=== PATIENT | male | born 1980 | race Caucasian/White ===

== ENCOUNTER 2019-12-13 18:25 | Emergency (ER) | payer OTHER ==
[~2019-12-13] VITALS: Ht 175.3 cm; Wt 81.7 kg
[2019-12-13] MEDS ORDERED: BRIVIACT100 MG PO (18:34)
[2019-12-13] MEDS ORDERED: DIAZEPAM 10 MG10 M1 PO (18:34)
[2019-12-13] MEDS ORDERED: SERTRALINE HCL100 MG PO (18:34)
[2019-12-13] MEDS ORDERED: RISPERDAL0.5 MG PO (18:35)
[2019-12-13] MEDS ORDERED: DILANTIN100 MG PO (18:36)
[2019-12-13 18:49] LABS: ABSOLUTE BASOPHILS 0.1 thou/uL (0.0-0.2); ABSOLUTE EOSINOPHILS 0.1 thou/uL (0.0-0.7); ABSOLUTE LYMPHOCYTES 3.8 thou/uL (0.8-5.3); ABSOLUTE MONOCYTES 0.6 thou/uL (0.0-1.2); ABSOLUTE NEUTROPHILS 5.3 thou/uL (1.6-8.1); BASOPHILS 0.5 %; EOSINOPHILS 1.4 %; HEMATOCRIT 46.1 % (42.0-52.0); HEMOGLOBIN 15.2 gm/dL (14.0-18.0); LYMPHOCYTES 38.8 %; MCH 29.7 pg (26.0-34.0); MCHC 33.1 g/dL (28.0-37.0); MCV 89.8 fL (80.0-100.0); MONOCYTES 6.1 %; MPV 8.4 fl. (7.2-11.1); NUCLEATED RBCS 0 /100WBC; PLATELET COUNT* 256 thou/uL (150-400); POLYS 53.2 %; RBC 5.14 mil/uL (4.50-6.00); RDW-CV 16.5 % (10.5-14.5); WBC 9.9 thou/uL (4.0-11.0)
[2019-12-13 18:54] LABS: CALCIUM 8.7 mg/dL (8.5-10.1); CREATININE 1.3 mg/dL (0.6-1.3); POTASSIUM 3.4 mmol/L (3.5-5.1)
[2019-12-13 19:07] LABS: ALBUMIN 4.2 g/dL (3.4-5.0); TOTAL BILIRUBIN 0.2 mg/dL (<0.1-1.0); TOTAL PROTEIN 7.6 g/dL (6.4-8.2)
[2019-12-13 21:22] VITALS: BP 115/73
--- NOTE | 2019-12-14 13:46 | EKG ---
[place] [address] ELECTROCARDIOGRAM REPORT Name: RAPHAEL MUKHERJEESTEPHANIE QUEZADA Room: [facility]#: [id number] Admission: 12/13/19 Attend Phys: Discharge: 12/13/19 Date of : 78 Date of Service: 12/13/191842 Report #: [id number] THIS REPORT FOR: //name// [facility] ED Test Date: 2019-12-13 Test Time: 18:43:42 Pat Name: PAULA MUKHERJEE Department: Room: Gender: Director Nurses' Registry: [facility] : 1980 Requested By: Reggie Coker Order Number: [id number] MD: Israel Pisano Measurements Intervals [place] Rate: 84 P: 68 [place]: 174 QRS: 3 QRSD: 79 T: 46 QT: 376 QTc: 445 Interpretive Statements Sinus rhythm Borderline low voltage, extremity leads No previous ECG available for comparison Electronically Signed On 12-14-2019 13:46:00 CDT by Israel Pisano [email or web address] <ELECTRONICALLY SIGNED> By: Israel Pisano MD, [facility] 12/14/19 [id number] Israel Pisano MD, FACC /EPI
== END 2019-12-13 21:22 | disposition home or self-care (01) ==
LOC: M.ERS 18:25
PROVIDERS: Emergency Medicine
DX: R56.9 Unspecified convulsions (principal); F32.9 Major depressive disorder, single episode, unspecified; R89.2 Abnormal level of other drugs, medicaments and biological substances in specimens from other organs, systems and tissues